=== PATIENT | male | born 1990 | race Caucasian/White ===

== ENCOUNTER 2017-07-23 20:12 | Inpatient (IN) | payer OTHER ==
[~2017-07-23] VITALS: Ht 175.3 cm; Wt 89.3 kg
[~2017-07-23 20:12] MED LIST: NORCO 5/3251 TABLET PO
[2017-07-23 21:51] LABS: HEMATOCRIT 44.7 % (38.0-50.0); HEMOGLOBIN 15.2 G/DL (12.5-16.6); MCH 28.5 PG (29.0-34.0); MCV 83.7 FL (86-99); PLATELET COUNT 343 K/uL (156-360); RBC DIS.WIDTH-CV 13.1 % (11.8-14.6); RBC DIS.WIDTH-SD 39.6 % (39-53); RED BLOOD COUNT 5.34 M/uL (4.00-5.50); WHITE BLOOD COUNT 15.5 K/uL (4.1-10.2)
[2017-07-23 22:17] LABS: ALBUMIN 4.4 g/dL (3.2-4.8)
[2017-07-23 22:18] LABS: CHLORIDE 106 mEq/L (99-109); POTASSIUM 3.9 mEq/L (3.7-5.4); SODIUM 140 mEq/L (136-147)
[2017-07-23 22:20] LABS: GLUCOSE 102 mg/dL (70-99); TOTAL PROTEIN 8.4 g/dL (6.4-8.3)
[2017-07-23 22:22] LABS: TOTAL BILIRUBIN 0.2 mg/dL (0.0-1.0)
[2017-07-23 22:23] LABS: ALKALINE PHOSPHATASE 119 IU/L (3-129)
[2017-07-23 22:24] LABS: CREATININE 0.9 mg/dL (0.6-1.3); GFR ESTIMATE (CALCULATED) > 59 mL/min/ (58.99-99999)
[2017-07-23 22:25] LABS: AST (GOT) 16 IU/L (2-34); UREA NITROGEN (BUN) 14 mg/dL (9-23)
[2017-07-23 22:26] LABS: ALT (GPT) 22 IU/L (3-49)
[2017-07-23 22:44] LABS: COCAINE PRESUMPTIVE POSITIVE (150 ng/mL); PHENCYCLIDINE NEGATIVE (25 ng/mL); THC CANNABINOIDS NEGATIVE (50 ng/mL)
[2017-07-23 22:45] LABS: AMPHETAMINE NEGATIVE (500 ng/mL); BARBITURATES NEGATIVE (200 ng/mL); BENZODIAZEPINES NEGATIVE (150 ng/mL); BUPRENORPHINE NEGATIVE (10 ng/mL); METHADONE NEGATIVE (200 ng/mL); METHAMPHETAMINE NEGATIVE (500 ng/mL); OPIATES (MORPHINE) NEGATIVE (100 ng/mL); OXYCODONE NEGATIVE (100 ng/mL); PROPOXYPHENE NEGATIVE (300 ng/mL); TRICYCLIC ANTIDEPRESSANTS NEGATIVE (300 ng/mL)
[2017-07-23 23:40] VITALS: BP 124/86
[2017-07-24 08:04] VITALS: BP 126/56
[2017-07-24 16:15] VITALS: BP 112/60
[2017-07-25 07:24] VITALS: BP 120/61
[2017-07-25 16:54] VITALS: BP 122/72
[2017-07-25 21:08] VITALS: BP 129/70
[2017-07-26 08:33] VITALS: BP 108/64
[2017-07-26 15:34] VITALS: BP 113/68
[2017-07-27 07:57] VITALS: BP 124/66
[2017-07-27] MEDS ORDERED: SERTRALINE HCL50 MG PO (09:31)
== END 2017-07-27 16:58 | disposition home or self-care (01) | DRG 897 ==
LOC: EME 20:12 → EDOF 22:38 → 1WEST 22:38
PROVIDERS: Emergency Medicine
DX: F11.23 Opioid dependence with withdrawal (principal); Z59.0 Homelessness; F14.20 Cocaine dependence, uncomplicated; F32.9 Major depressive disorder, single episode, unspecified; F41.9 Anxiety disorder, unspecified; Z21 Asymptomatic human immunodeficiency virus [HIV] infection status; F17.210 Nicotine dependence, cigarettes, uncomplicated
CPT/HCPCS: 80053; 84999; 85027; 90839; 97150 GO; 97165 GO; 99281; 99284; J0572; Q0169; Q0177